=== PATIENT | female | born 1955 | race Two or more races ===

== ENCOUNTER 2022-09-11 16:38 | Emergency (ER) | payer OTHER ==
[~2022-09-11] VITALS: Ht 157.5 cm; Wt 87.0 kg
[2022-09-11 18:08] LABS: Basophils # (auto) 0 10 ^3/uL (0-0.2); Basophils % (auto) 0.3 % (0.0-2.0); Eosinophils # (auto) 0.4 10 ^3/uL (0-0.8); Eosinophils % (auto) 3.6 % (0.0-7.0); Hematocrit 37.9 % (36.0-46.0); Hemoglobin 12.1 g/dL (12.2-16.2); Lymphocytes % (auto) 20.6 % (10.0-50.0); Mean Corpuscular Hemoglobin 24.5 pg (28.0-32.0); Mean Corpuscular Volume 76.6 fL (80.0-100.0); Monocytes # (auto) 0.4 10 ^3/uL (0-1.3); Monocytes % (auto) 4.3 % (0.0-12.0); Neutrophils % (auto) 71.2 % (37.0-80.0); Nucleated Red Blood Cells % 0.1 %; Red Blood Cells 4.94 10^6/uL (4.0-5.20); Red Cell Distribution Width 14.3 % (11.8-14.3); White Blood Cell 9.8 10^3/uL (4.4-10.8)
[2022-09-11 18:28] LABS: Albumin 3.6 g/dL (3.4-5.0); Calcium 8.6 mg/dL (8.5-10.1); Potassium 4.6 mmol/L (3.5-5.1)
[2022-09-11 18:32] LABS: BUN/Creatinine Ratio 15.5 (10.0-20.0); Bilirubin, Total 0.5 mg/dL (0.2-1.0); Total Protein 7.3 g/dL (6.4-8.2)
[2022-09-11] MEDS ORDERED: IOHEXOL 350 MG/ML 100ML IJ ONE (19:56)
[2022-09-11] MEDS ORDERED: PROMETHAZINE HCL 25 MG/ML 1ML IM ONE (22:45)
[2022-09-11] MEDS ORDERED: KETOROLAC TROMETH 30 MG/ML 1ML VIAL IM ONE (22:45)
[2022-09-12 00:02] LABS: Urine Bacteria FEW /hpf (None Seen); Urine Blood Negative /uL (Negative); Urine Mucus FEW (None Seen); Urine WBC 27 /hpf (0 - 5)
[2022-09-12 00:05] VITALS: BP 151/69
[2022-09-12] MEDS ORDERED: NITR-87 PO (00:14)
[2022-09-12] MEDS ORDERED: cefTRIAXone SOD 1,000 MG VL IM ONE ×2 (00:15)
[2022-09-12] MEDS ORDERED: LIDOCAINE 1% HCL (LOCAL ANESTH.) INJ 20ML MDV ONE (00:26)
== END 2022-09-12 01:19 | disposition home or self-care (01) ==
LOC: ER 16:38 → EDBD 16:38 → ER 09-12 01:00
DX: N39.0 Urinary tract infection, site not specified (principal); K21.9 Gastro-esophageal reflux disease without esophagitis; E11.9 Type 2 diabetes mellitus without complications; I11.0 Hypertensive heart disease with heart failure; I50.9 Heart failure, unspecified
CPT/HCPCS: 36415; 70450; 71045; 71275; 74176; 80053; 81001; 83605; 83690; 83880; 84484; 85025; 85379; 93005; 93970; 96372; 99285; J0696; J1885; J2001; J2550; Q9967